=== PATIENT | male | born 1960 | race Caucasian/White ===

== ENCOUNTER 2017-01-02 17:59 | Emergency (ER) | payer OTHER ==
[~2017-01-02] VITALS: Ht 177.8 cm; Wt 120.0 kg
[~2017-01-02 17:59] MED LIST: ALBU8I INH; BACL20TA PO; DIAZ5 PO; LISI20 PO; MOBI7.5T PO; TRAM100T19 PO
[2017-01-02 18:01] VITALS: BP 176/102; PULSE 68; RESP 18; TEMP 98.5; O2SAT 97
[2017-01-02 20:21] LABS: AUTOMATED NEUTROPHIL # 6.3 TH/MM3 (1.8-7.7); BASOPHIL # 0.1 TH/MM3 (0-0.2); EOSINOPHIL # 0.1 TH/MM3 (0-0.4); EOSINOPHIL % 1.2 % (0.0-4.0); HEMATOCRIT 51.6 % (39.0-51.0); HEMO FLAGS DIFF FINAL; LYMPH % 26.3 % (9.0-44.0); LYMPHOCYTE # 2.6 TH/MM3 (1.0-4.8); MEAN CORPUSCULAR HEMOGLOBIN 30.3 PG (27.0-34.0); MEAN CORPUSCULAR HGB CONC 34.4 % (32.0-36.0); MONO % 7.1 % (0.0-8.0); NEUT % 64.4 % (16.0-70.0); PLATELET COUNT 235 TH/MM3 (150-450); RED BLOOD COUNT 5.86 MIL/MM3 (4.50-5.90); RED CELL DISTRIBUTION WIDTH 13.7 % (11.6-17.2); WHITE BLOOD COUNT 9.8 TH/MM3 (4.0-11.0)
--- NOTE | 2017-01-02 20:22 | RADRPT ---
EXAM DATE/TIME: 01/02/2017 18:53 [facility] COMPARISON: No previous studies available for comparison. INDICATIONS : Chest pain with shortness of breath. MEDICAL HISTORY : Hypertension. SURGICAL HISTORY : None. ENCOUNTER: Initial ACUITY: 2 days PAIN SCORE: 4/10 LOCATION: Bilateral chest FINDINGS: PA and lateral views of the chest demonstrate the lungs to be symmetrically aerated without evidence of mass, infiltrate or effusion. The cardiomediastinal contours are unremarkable. Osseous structure s are intact. CONCLUSION: No acute disease. Edgardo Ballard MD on January 02, 2017 at 20:20 Board Certified Radiologist. This report was verified electronically.
[2017-01-02 20:35] LABS: APTT (PATIENT) 27.8 SEC (24.3-30.1); INTERNATIONAL NORMALIZED RATIO 0.9 RATIO; PROTHROMBIN TIME - PATIENT 10.4 SEC (9.8-11.6)
[2017-01-02 20:47] LABS: ANION GAP 8 MEQ/L (5-15); BICARBONATE 23.5 MEQ/L (21.0-32.0); BLOOD UREA NITROGEN 10 MG/DL (7-18); CHLORIDE 108 MEQ/L (98-107); GLOMERULAR FILTRATION RATE 76 ML/MIN (>89); MAGNESIUM 2.1 MG/DL (1.5-2.5); SODIUM (NA) 139 MEQ/L (136-145)
[2017-01-02 20:51] LABS: CREATINE KINASE 125 U/L (39-308)
[2017-01-02 21:08] LABS: CKMB 1.1 NG/ML (0.5-3.6)
--- NOTE | 2017-01-02 21:24 | EKG ---
Date Performed: 01/02/2017 Time Performed: 19:52:50 PTAGE: 56 years EKG: SINUS BRADYCARDIA WITH MARKED SINUS ARRHYTHMIA NONSPECIFIC T-WAVE ABNORMALITY BORDERLINE EC G NO PREVIOUS TRACING DOCTOR: Fabiano Garrido Interpretating Date/Time 01/02/2017 21:23:30
[2017-01-02] MEDS ORDERED: SERO300T PO (22:31)
[2017-01-02] MEDS ORDERED: LOSA50TA PO (22:31)
[2017-01-02] MEDS ORDERED: DIAZ10 PO (22:31)
[2017-01-02] MEDS ORDERED: ATOR40TA16 PO (22:31)
--- NOTE | 2017-01-02 22:46 | PD ---
HPI Chief Complaint: Respiratory Symptoms Time Seen by Provider: 22:05 Travel History International Travel<30 days: No Contact w/Intl Traveler<30days: No Traveled to known affect area: No History of Present Illness HPI 56-year-old male complains of elevated blood pressure and shortness of breath. Patient states that the symptoms started today. Patient has history of hypertension and has been taking lisinopril 20 mg daily. Patient also has history of chronic back pain and anxiety. Patient states that he took meloxicam for the past 2 days and aspirin 325 mg today. Patient was seen by personal physician and states that he has thickened blood. Patient being referred to a candy dipper hand for that. Patient denies any headache. Patient states that he has intermittent postnasal drip today. Patient denies any chest pain. Patient states that he has intermittent shortness of breath. Patient states that the shortness breath is not associated with exertion. Patient has history of hypertension. Patient denies history of diabetes or hyperlipidemia. Patient is a smoker. Patient states that he has history of asthma and has been using albuterol inhaler. Patient denies any fever chills. Patient denies any coughing congestion. Patient states that the blood pressure was elevated this evening. PFSH Past Medical History Anxiety: Yes Depression: Yes High Cholesterol: Yes Diabetes: No (PT STATES " ALMOST , LOST 60 LBS 4 MONTHS") Diminished Hearing: No Herniated Disk: Yes Hypertension: Yes Psychiatric: Yes Immunizations Current: Yes Migraines: Yes Tetanus Vaccination: > 5 Years Influenza Vaccination: No Past Surgical History Surgical History: No Previous Surgery Other Surgery: Yes (SURGERY FOR DEVIATED SEPTUM, HAIR TRANSPLANT) Social History Alcohol Use: No Tobacco Use: Yes (one pack per day) Substance Use: No Allergies-Medications (Allergen,Severity, Reaction): Coded Allergies: penicillin G (Unverified Allergy, Severe, 01/02/17) Per [facility] [phone]. Reported Meds & Prescriptions Reported Meds & Active Scripts Active Reported Valium (Diazepam) 10 Mg Tab 20 Mg PO HS Seroquel (Quetiapine Fumarate) 300 Mg Tab 300 Mg PO HS Atorvastatin (Atorvastatin Calcium) 40 Mg Tab 40 Mg PO HS Losartan (Losartan Potassium) 50 Mg Tab 50 Mg PO DAILY Review of Systems General / Constitutional: No: Fever Eyes: No: Visual changes HENT: No: Headaches Cardiovascular: No: Chest Pain or Discomfort Respiratory: Positive: Shortness of Breath Gastrointestinal: No: Abdominal Pain Genitourinary: No: Dysuria Musculoskeletal: No: Pain Skin: No Rash Neurologic: No: Weakness Psychiatric: No: Depression Endocrine: No: Polydipsia Hematologic/Lymphatic: No: Easy Bruising Physical Exam Narrative GENERAL: Well-nourished, well-developed patient. SKIN: Focused skin assessment warm/dry. HEAD: Normocephalic. EYES: No scleral icterus. No injection or drainage. Throat: Nonerythematous. NECK: Supple, trachea midline. No JVD or lymphadenopathy. CARDIOVASCULAR: Regular rate and rhythm without murmurs, gallops, or rubs. RESPIRATORY: Breath sounds equal bilaterally. No accessory muscle use. GASTROINTESTINAL: Abdomen soft, non-tender, nondistended. MUSCULOSKELETAL: No cyanosis, or edema. BACK: Nontender without obvious deformity. No CVA tenderness. Neurologic exam normal. Data Data Last Documented VS Vital Signs Date Time Temp Pulse Resp B/P (MAP) Pulse Ox O2 Delivery O2 Flow Rate FiO2 01/02/17 22:10 66 20 98 01/02/17 18:01 98.5 176/102 (126) Orders Orders Electrocardiogram (01/02/17 18:28) Basic Metabolic Panel (Bmp) (01/02/17 18:28) Ckmb (Isoenzyme) Profile (01/02/17 18:28) Complete Blood Count With Diff (01/02/17 18:28) Magnesium (Mg) (01/02/17 18:28) Prothrombin Time / Inr (Pt) (01/02/17 18:28) Act Partial Throm Time (Ptt) (01/02/17 18:28) Troponin I (01/02/17 18:28) Chest, Pa & Lat (01/02/17 18:28) CKMB (01/02/17 19:50) CKMB% (01/02/17 19:50) Labs Laboratory Tests Test 01/02/17 19:50 White Blood Count 9.8 TH/MM3 Red Blood Count 5.86 MIL/MM3 Hemoglobin 17.8 GM/DL Hematocrit 51.6 % Mean Corpuscular Volume 88.0 FL Mean Corpuscular Hemoglobin 30.3 PG Mean Corpuscular Hemoglobin Concent 34.4 % Red Cell Distribution Width 13.7 % Platelet Count 235 TH/MM3 Mean Platelet Volume 8.8 FL Neutrophils (%) (Auto) 64.4 % Lymphocytes (%) (Auto) 26.3 % Monocytes (%) (Auto) 7.1 % Eosinophils (%) (Auto) 1.2 % Basophils (%) (Auto) 1.0 % Neutrophils # (Auto) 6.3 TH/MM3 Lymphocytes # (Auto) 2.6 TH/MM3 Monocytes # (Auto) 0.7 TH/MM3 Eosinophils # (Auto) 0.1 TH/MM3 Basophils # (Auto) 0.1 TH/MM3 CBC Comment DIFF FINAL Differential Comment Prothrombin Time 10.4 SEC Prothromb Time International Ratio 0.9 RATIO Activated Partial Thromboplast Time 27.8 SEC Blood Urea Nitrogen 10 MG/DL Creatinine 1.02 MG/DL Random Glucose 108 MG/DL Calcium Level 8.9 MG/DL Magnesium Level 2.1 MG/DL Sodium Level 139 MEQ/L Potassium Level 4.0 MEQ/L Chloride Level 108 MEQ/L Carbon Dioxide Level 23.5 MEQ/L Anion Gap 8 MEQ/L Estimat Glomerular Filtration Rate 76 ML/MIN Total Creatine Kinase 125 U/L Creatine Kinase MB 1.1 NG/ML Troponin I LESS THAN 0.02 NG/ML MDM Medical Decision Making Medical Screen Exam Complete: Yes Emergency Medical Condition: Yes Interpretation(s) 22:44 PM. EKG shows sinus rhythm nonspecific ST-T wave change. CBC with WBC 9.8. Hemoglobin 17.8. Hematocrit 51.6. Patient at baseline. BMP within normal limit. Cardiac enzymes are normal. Differential Diagnosis Differential diagnosis including acute exacerbation of asthma, URI, allergy, uncontrolled hypertension. Narrative Course 56-year-old male with shortness of breath and elevated blood pressure. History of hypertension. Repeat blood pressure in the ED 140/90. Patient started taking meloxicam and aspirin. Diagnosis Primary Impression: Dyspnea Qualified Codes: R06.00 - Dyspnea, unspecified Additional Impression: Uncontrolled hypertension Patient Instructions: General Instructions Additional Instructions: Stop meloxicam. Advised patient aspirin 81 mg daily. Continue with all blood pressure medication. Follow-up with personal physician for blood pressure check. Med/Other Pt SpecificInfo: Med Stopped Disposition: 01 DISCHARGE HOME Condition: Stable Von Preciado MD Jan 02, 2017 22:46
[2017-01-02 23:10] VITALS: BP 136/74
== END 2017-01-02 23:11 | disposition home or self-care (01) ==
LOC: NEPD 17:59
DX: I10 Essential (primary) hypertension (principal); R06.00 Dyspnea, unspecified; F41.9 Anxiety disorder, unspecified; F32.9 Major depressive disorder, single episode, unspecified
CPT/HCPCS: 71020; 80048; 82550; 82552; 83735; 84484; 85025; 85610; 85730; 93005; 99285

== ENCOUNTER 2017-01-30 17:47 | Emergency (ER) | payer OTHER ==
[~2017-01-30 17:47] MED LIST changes: -ALBU8I INH; +ATOR40TA16 PO; -BACL20TA PO; +DIAZ10 PO; -DIAZ5 PO; -LISI20 PO; +LOSA50TA PO; -MOBI7.5T PO; +SERO300T PO; -TRAM100T19 PO
[2017-01-30 17:48] VITALS: BP 141/84; PULSE 80; RESP 15; TEMP 98; O2SAT 98
--- NOTE | 2017-01-30 18:31 | RADRPT ---
EXAM DATE/TIME: 01/30/2017 18:09 [facility] COMPARISON: CHEST PA & LAT, January 02, 2017, 18:53. INDICATIONS : Short of breath. MEDICAL HISTORY : Coronary artery disease, Polycytosis. SURGICAL HISTORY : None. ENCOUNTER: [facility] ACUITY: 3 weeks PAIN SCORE: 0/10 LOCATION: Bilateral chest FINDINGS: PA and lateral views of the chest demonstrate the lungs to be symmetrically aerated without evidence of mass, infiltrate or effusion. The cardiomediastinal contours are unremarkable. Osseous structure s are intact. CONCLUSION: No acute disease. Julio C Sierra MD on January 30, 2017 at 18:28 Board Certified Radiologist. This report was verified electronically.
[2017-01-30] MEDS ORDERED: LIDOCAINE VISCOUS 2% SOLN 15 ML UDC PO ONE (20:00)
[2017-01-30] MEDS ORDERED: ALUMINUM/MAGNESIUM/SIMETH 30 ML CUP PO ONE (20:00)
[2017-01-30] MEDS ORDERED: FAMOTIDINE 20 MG/2 ML VIAL IV PUSH ONE (20:00)
[2017-01-30] MEDS ORDERED: SODIUM CHLORIDE 0.9% FLUSH 10 ML FLUSH IVF PRN (20:00)
[2017-01-30 20:01] VITALS: O2SAT 97
[2017-01-30 20:21] LABS: AUTOMATED NEUTROPHIL # 5.4 TH/MM3 (1.8-7.7); BASOPHIL # 0.1 TH/MM3 (0-0.2); EOSINOPHIL # 0.1 TH/MM3 (0-0.4); EOSINOPHIL % 1.4 % (0.0-4.0); HEMATOCRIT 49.9 % (39.0-51.0); HEMO FLAGS DIFF FINAL; LYMPH % 25.2 % (9.0-44.0); LYMPHOCYTE # 2.1 TH/MM3 (1.0-4.8); MEAN CELL VOLUME 88.4 FL (80.0-100.0); MONO % 7.7 % (0.0-8.0); NEUT % 64.7 % (16.0-70.0); PLATELET COUNT 200 TH/MM3 (150-450); RED BLOOD COUNT 5.64 MIL/MM3 (4.50-5.90); WHITE BLOOD COUNT 8.4 TH/MM3 (4.0-11.0)
--- NOTE | 2017-01-30 20:41 | PD ---
HPI Chief Complaint: Respiratory Symptoms Time Seen by Provider: 19:26 Travel History International Travel<30 days: No Contact w/Intl Traveler<30days: No Traveled to known affect area: No History of Present Illness HPI Patient is a 56 year old male who comes in complaining of SOB and feeling like something is "sticky" in his throat. He says this has been going on for a while , but has been worse in the past week. He says he gets occasional pain to his epigastric area. He says he feels like he is trying to breath through a straw. He offers several different diagnosis for himself. He has not tried anything to relieve his symptoms. He says he cannot lay flat and has to lay on his stomach. HE denies dyspnea on exertion. He does say he has been laying in bed all day due to his chronic depression. He denies fever or chills. PFSH Past Medical History Anxiety: Yes Depression: Yes High Cholesterol: Yes Diminished Hearing: No Herniated Disk: Yes Hypertension: Yes Psychiatric: Yes Immunizations Current: Yes Migraines: Yes Tetanus Vaccination: Unknown Past Surgical History Other Surgery: Yes (SURGERY FOR DEVIATED SEPTUM, HAIR TRANSPLANT) Social History Alcohol Use: No Tobacco Use: Yes (one pack per day) Substance Use: No Allergies-Medications (Allergen,Severity, Reaction): Coded Allergies: penicillin G (Unverified Allergy, Severe, 01/30/17) Per [facility] [phone]. Reported Meds & Prescriptions Reported Meds & Active Scripts Active Reported Valium (Diazepam) 10 Mg Tab 20 Mg PO HS Seroquel (Quetiapine Fumarate) 300 Mg Tab 300 Mg PO HS Atorvastatin (Atorvastatin Calcium) 40 Mg Tab 40 Mg PO HS Losartan (Losartan Potassium) 50 Mg Tab 50 Mg PO DAILY Review of Systems Except as stated in HPI: all other systems reviewed are Neg General / Constitutional: No: Fever, Chills HENT: No: Headaches, Lightheadedness Respiratory: Positive: Shortness of Breath Gastrointestinal: Positive: Abdominal Pain, No: Nausea, Vomiting Musculoskeletal: No: Myalgias, Edema Skin: No Rash, No Change in Pigmentation Neurologic: No: Weakness, Dizziness Physical Exam Narrative GENERAL: Awake and alert, in no acute distress. SKIN: Focused skin assessment warm/dry. HEAD: Atraumatic. Normocephalic. EYES: Pupils equal and round. No scleral icterus. ENT: No pharyngeal swelling. No tonsillar enlargement or exudates. Mucous membranes pink and moist. NECK: Trachea midline. No JVD. CARDIOVASCULAR: Regular rate and rhythm. No murmur appreciated. RESPIRATORY: No accessory muscle use. Clear to auscultation. Breath sounds equal bilaterally. GASTROINTESTINAL: Abdomen soft, nondistended. Mild tenderness to the mid- epigastric area. No rebound or guarding. MUSCULOSKELETAL: No obvious deformities. No clubbing. No cyanosis. No edema. NEUROLOGICAL: Awake and alert. No obvious cranial nerve deficits. Motor grossly within normal limits. Normal speech. PSYCHIATRIC: Appropriate mood and affect; insight and judgment normal. Data Data Last Documented VS Vital Signs Date Time Temp Pulse Resp B/P (MAP) Pulse Ox O2 Delivery O2 Flow Rate FiO2 01/30/17 21:26 65 18 120/77 (91) 98 Room Air 01/30/17 17:48 98.0 Orders Orders Chest, Pa & Lat (01/30/17 ) Complete Blood Count With Diff (01/30/17 19:46) Comprehensive Metabolic Panel (01/30/17 19:46) B-Type Natriuretic Peptide (01/30/17 19:46) D-Dimer (01/30/17 19:46) Act Partial Throm Time (Ptt) (01/30/17 19:46) Prothrombin Time / Inr (Pt) (01/30/17 19:46) Troponin I (01/30/17 19:46) Iv Access Insert/Monitor (01/30/17 19:46) Electrocardiogram (01/30/17 19:46) Ecg Monitoring (01/30/17 19:46) Oximetry (01/30/17 19:46) Oxygen Administration (01/30/17 19:46) Sodium Chloride 0.9% Flush (Ns Flush) (01/30/17 20:00) Famotidine Inj (Pepcid Inj) (01/30/17 20:00) Al-Mag Hy-Si 40-40-4 Mg/Ml Liq (Mag-Al P (01/30/17 20:00) Lidocaine 2% Viscous (Xylocaine 2% Visco (01/30/17 20:00) Labs Laboratory Tests Test 01/30/17 20:10 White Blood Count 8.4 TH/MM3 Red Blood Count 5.64 MIL/MM3 Hemoglobin 16.9 GM/DL Hematocrit 49.9 % Mean Corpuscular Volume 88.4 FL Mean Corpuscular Hemoglobin 30.0 PG Mean Corpuscular Hemoglobin Concent 34.0 % Red Cell Distribution Width 14.0 % Platelet Count 200 TH/MM3 Mean Platelet Volume 9.1 FL Neutrophils (%) (Auto) 64.7 % Lymphocytes (%) (Auto) 25.2 % Monocytes (%) (Auto) 7.7 % Eosinophils (%) (Auto) 1.4 % Basophils (%) (Auto) 1.0 % Neutrophils # (Auto) 5.4 TH/MM3 Lymphocytes # (Auto) 2.1 TH/MM3 Monocytes # (Auto) 0.6 TH/MM3 Eosinophils # (Auto) 0.1 TH/MM3 Basophils # (Auto) 0.1 TH/MM3 CBC Comment DIFF FINAL Differential Comment Prothrombin Time 10.4 SEC Prothromb Time International Ratio 1.0 RATIO Activated Partial Thromboplast Time 27.1 SEC D-Dimer Quantitative (PE/DVT) LESS THAN 0.19 MG/L FEU Blood Urea Nitrogen 14 MG/DL Creatinine 1.15 MG/DL Random Glucose 82 MG/DL Total Protein 7.9 GM/DL Albumin 4.5 GM/DL Calcium Level 9.1 MG/DL Alkaline Phosphatase 58 U/L Aspartate Amino Transf (AST/SGOT) 39 U/L Alanine Aminotransferase (ALT/SGPT) 41 U/L Total Bilirubin 0.6 MG/DL Sodium Level 137 MEQ/L Potassium Level 4.5 MEQ/L Chloride Level 103 MEQ/L Carbon Dioxide Level 23.1 MEQ/L Anion Gap 11 MEQ/L Estimat Glomerular Filtration Rate 66 ML/MIN Troponin I LESS THAN 0.02 NG/ML B-Type Natriuretic Peptide 6 PG/ML [facility] Medical Decision Making Medical Screen Exam Complete: Yes Emergency Medical Condition: Yes Medical Record Reviewed: Yes Interpretation(s) ECG shows sinus rhythm at 59, no ST elevation or depression. Differential Diagnosis Postnasal drip versus GERD versus ACS Narrative Course Patient is a 56-year-old male who comes in complaining of a "sticky throat" and some shortness of breath. Patient has had symptoms for several weeks. Exam shows no acute abnormalities. IV established, labs sent. Labs show no acute abnormalities. Troponin and d-dimer are negative. Patient given a GI cocktail. He is advised to try [id number] allergy medications as well as Zantac. Advised follow-up with his doctor. Advised to return to the ED as needed for any worsening symptoms. Diagnosis Primary Impression: Post-nasal drainage Additional Impression: GERD (gastroesophageal reflux disease) Qualified Codes: K21.9 - Gastro-esophageal reflux disease without esophagitis Patient Instructions: Gastroesophageal Reflux Disease (ED), General Instructions, Postnasal Drip (GEN) Additional Instructions: Take [id number] allergy medication. Takes Zantac daily. Follow up with her doctors. Return to the ED as needed for any worsening symptoms. Scripts Ranitidine (Zantac) 150 Mg Tab 150 MG PO BID for Reduce Stomach Acid, #60 TAB 0 Refills Prov: Neeru Byrd MD 01/30/17 Disposition: 01 DISCHARGE HOME Condition: Stable Neeru Byrd MD Jan 30, 2017 20:41
[2017-01-30 20:44] LABS: ANION GAP 11 MEQ/L (5-15); AST (GOT) 39 U/L (15-37); BICARBONATE 23.1 MEQ/L (21.0-32.0); BLOOD UREA NITROGEN 14 MG/DL (7-18); CHLORIDE 103 MEQ/L (98-107); GLOMERULAR FILTRATION RATE 66 ML/MIN (>89); POTASSIUM 4.5 MEQ/L (3.5-5.1); SODIUM (NA) 137 MEQ/L (136-145)
[2017-01-30 20:45] LABS: ALT (GPT) 41 U/L (12-78)
[2017-01-30 20:48] LABS: ALKALINE PHOSPHATASE 58 U/L (45-117); APTT (PATIENT) 27.1 SEC (24.3-30.1); PROTHROMBIN TIME - PATIENT 10.4 SEC (9.8-11.6); TOTAL BILIRUBIN ADULT 0.6 MG/DL (0.2-1.0)
[2017-01-30 21:26] VITALS: BP 120/77; PULSE 65; RESP 18; O2SAT 98
[2017-01-30] MEDS ORDERED: ZANT150T2 PO (22:38)
--- NOTE | 2017-01-31 15:45 | EKG ---
Date Performed: 01/30/2017 Time Performed: 20:00:51 PTAGE: 56 years EKG: SINUS BRADYCARDIA WITH MARKED RHYTHM IRREGULARITY, POSSIBLE NON-CONDUCTED PAC, SA BLOCK, AV BLOCK, OR SINUS PAUSE ABNORMAL RHYTHM ECG PREVIOUS TRACING : 01/02/2017 19.52 DOCTOR: Joshua Dickey Interpretating Date/Time 01/31/2017 15:44:08
== END 2017-01-30 22:52 | disposition home or self-care (01) ==
LOC: NEPE 17:47
DX: R09.82 Postnasal drip (principal); K21.9 Gastro-esophageal reflux disease without esophagitis; F41.9 Anxiety disorder, unspecified; F32.9 Major depressive disorder, single episode, unspecified; E78.00 Pure hypercholesterolemia, unspecified; I10 Essential (primary) hypertension; F17.200 Nicotine dependence, unspecified, uncomplicated; Z79.899 Other long term (current) drug therapy; Z88.0 Allergy status to penicillin
CPT/HCPCS: 71020; 80053; 83880; 84484; 85025; 85379; 85610; 85730; 93005; 96374

== ENCOUNTER 2017-04-02 16:24 | Emergency (ER) | payer OTHER ==
[~2017-04-02 16:24] MED LIST changes: +ZANT150T2 PO
[2017-04-02 16:25] VITALS: BP 165/82; PULSE 63; RESP 14; TEMP 97.4; O2SAT 95
[2017-04-02 18:14] LABS: AUTOMATED NEUTROPHIL # 6.2 TH/MM3 (1.8-7.7); BASOPHIL # 0.1 TH/MM3 (0-0.2); BASOPHIL % 0.9 % (0.0-2.0); EOSINOPHIL # 0.2 TH/MM3 (0-0.4); EOSINOPHIL % 2.3 % (0.0-4.0); HEMATOCRIT 49.9 % (39.0-51.0); HEMOGLOBIN 17.6 GM/DL (13.0-17.0); LYMPH % 20.3 % (9.0-44.0); LYMPHOCYTE # 1.8 TH/MM3 (1.0-4.8); MEAN CELL VOLUME 88.2 FL (80.0-100.0); MEAN CORPUSCULAR HEMOGLOBIN 31.1 PG (27.0-34.0); MEAN CORPUSCULAR HGB CONC 35.2 % (32.0-36.0); MEAN PLATELET VOLUME 8.5 FL (7.0-11.0); MONO % 8.2 % (0.0-8.0); MONOCYTE # 0.7 TH/MM3 (0-0.9); NEUT % 68.3 % (16.0-70.0); PLATELET COUNT 219 TH/MM3 (150-450); RED BLOOD COUNT 5.66 MIL/MM3 (4.50-5.90); RED CELL DISTRIBUTION WIDTH 14.3 % (11.6-17.2); WHITE BLOOD COUNT 9.1 TH/MM3 (4.0-11.0)
[2017-04-02 18:25] LABS: PROTHROMBIN TIME - PATIENT 10.1 SEC (9.8-11.6)
[2017-04-02 18:28] LABS: ALBUMIN 4.4 GM/DL (3.4-5.0); ALT (GPT) 28 U/L (12-78); AST (GOT) 13 U/L (15-37); BICARBONATE 23.6 MEQ/L (21.0-32.0); BLOOD UREA NITROGEN 12 MG/DL (7-18); CALCIUM 9.1 MG/DL (8.5-10.1); CHLORIDE 109 MEQ/L (98-107); CREATININE 0.95 MG/DL (0.60-1.30); GLOMERULAR FILTRATION RATE 83 ML/MIN (>89); GLUCOSE,RANDOM 119 MG/DL (74-106); SODIUM (NA) 140 MEQ/L (136-145)
[2017-04-02 18:31] LABS: ALKALINE PHOSPHATASE 59 U/L (45-117); TOTAL BILIRUBIN ADULT 0.4 MG/DL (0.2-1.0); TOTAL PROTEIN 7.9 GM/DL (6.4-8.2)
[2017-04-02] MEDS ORDERED: IBUP-232 PO (19:45)
[2017-04-02] MEDS ORDERED: PANTOPRAZOLE SOD 40 MG DELAYED RELEASE TAB PO ONE (19:45)
[2017-04-02] MEDS ORDERED: PROT40TA PO (19:45)
[2017-04-02] MEDS ORDERED: IBUPROFEN 600 MG TAB PO ONE (19:45)
[2017-04-02] MEDS ORDERED: ROBA750T PO (19:45)
--- NOTE | 2017-04-02 19:46 | PD ---
HPI Chief Complaint: Medical Clearance Time Seen by Provider: 19:11 Travel History International Travel<30 days: No Contact w/Intl Traveler<30days: No Traveled to known affect area: No History of Present Illness HPI 56-year-old male complains of blurring vision, seeing halos, abdominal pain, back pain. Patient states that he has history of chronic back pain from spinal stenosis and herniated disc. Patient was seen by personal physician in the past for back pain. Patient took tramadol recently for back pain. Patient states that he started having upper abdomen lower abdomen pain for the past 2 days. Patient states that the pain has been intermittent. Patient states the pain and cramping pain. Patient denies any pain radiation. Patient denies nausea vomiting diaphoresis. Patient denied dysuria or frequency. Patient denies any fever chills. Patient normally wears glasses. Patient has not seen an economic adviser for the past 3 years. PFSH Past Medical History Anxiety: Yes Depression: Yes Cardiovascular Problems: Yes High Cholesterol: Yes Coronary Artery Disease: Yes ("Possible significant abdominal aorta calcification" ) Diminished Hearing: No Herniated Disk: Yes Hypertension: Yes Psychiatric: Yes Immunizations Current: Yes Migraines: Yes Tetanus Vaccination: Unknown Influenza Vaccination: No Past Surgical History Other Surgery: Yes (SURGERY FOR DEVIATED SEPTUM, HAIR TRANSPLANT) Social History Alcohol Use: No Tobacco Use: Yes (one pack per day) Substance Use: No Allergies-Medications (Allergen,Severity, Reaction): Coded Allergies: aspirin (Verified Allergy, Severe, Anaphylaxis, 04/02/17) penicillin G (Unverified Allergy, Severe, 04/02/17) Per [facility] [phone]. Reported Meds & Prescriptions Reported Meds & Active Scripts Active Reported Valium (Diazepam) 10 Mg Tab 20 Mg PO HS Atorvastatin (Atorvastatin Calcium) 40 Mg Tab 40 Mg PO HS Losartan (Losartan Potassium) 50 Mg Tab 50 Mg PO DAILY Review of Systems General / Constitutional: No: Fever Eyes: Positive: Blurred Vision, No: Visual changes HENT: No: Headaches Cardiovascular: No: Chest Pain or Discomfort Respiratory: No: Shortness of Breath Gastrointestinal: Positive: Abdominal Pain Genitourinary: No: Dysuria Musculoskeletal: No: Pain Skin: No Rash Neurologic: No: Weakness Psychiatric: No: Depression Endocrine: No: Polydipsia Hematologic/Lymphatic: No: Easy Bruising Physical Exam Narrative GENERAL: Well-nourished, well-developed patient. SKIN: Focused skin assessment warm/dry. HEAD: Normocephalic. EYES: No scleral icterus. No injection or drainage. Pupils 2 mm equal reactive. Fundi benign. NECK: Supple, trachea midline. No JVD or lymphadenopathy. CARDIOVASCULAR: Regular rate and rhythm without murmurs, gallops, or rubs. RESPIRATORY: Breath sounds equal bilaterally. No accessory muscle use. GASTROINTESTINAL: Abdomen soft, nondistended. Patient has mild tenderness on palpation lower abdomen. No rebound tenderness. No mass. MUSCULOSKELETAL: No cyanosis, or edema. BACK: Nontender without obvious deformity. No CVA tenderness. Neurologic exam: Patient is awake alert oriented 3. Patient moves all extremities well. No obvious focal neurological deficit. Data Data Last Documented VS Vital Signs Date Time Temp Pulse Resp B/P (MAP) Pulse Ox O2 Delivery O2 Flow Rate FiO2 04/02/17 16:25 97.4 63 14 165/82 (109) 95 Orders Orders Electrocardiogram (04/02/17 ) Complete Blood Count With Diff (04/02/17 16:37) Comprehensive Metabolic Panel (04/02/17 16:37) Lipase (04/02/17 16:37) Prothrombin Time / Inr (Pt) (04/02/17 16:37) Act Partial Throm Time (Ptt) (04/02/17 16:37) Urinalysis - C+S If Indicated (04/02/17 16:37) Labs Laboratory Tests Test 04/02/17 17:57 White Blood Count 9.1 TH/MM3 Red Blood Count 5.66 MIL/MM3 Hemoglobin 17.6 GM/DL Hematocrit 49.9 % Mean Corpuscular Volume 88.2 FL Mean Corpuscular Hemoglobin 31.1 PG Mean Corpuscular Hemoglobin Concent 35.2 % Red Cell Distribution Width 14.3 % Platelet Count 219 TH/MM3 Mean Platelet Volume 8.5 FL Neutrophils (%) (Auto) 68.3 % Lymphocytes (%) (Auto) 20.3 % Monocytes (%) (Auto) 8.2 % Eosinophils (%) (Auto) 2.3 % Basophils (%) (Auto) 0.9 % Neutrophils # (Auto) 6.2 TH/MM3 Lymphocytes # (Auto) 1.8 TH/MM3 Monocytes # (Auto) 0.7 TH/MM3 Eosinophils # (Auto) 0.2 TH/MM3 Basophils # (Auto) 0.1 TH/MM3 CBC Comment DIFF FINAL Differential Comment Prothrombin Time 10.1 SEC Prothromb Time International Ratio 1.0 RATIO Activated Partial Thromboplast Time 27.0 SEC Blood Urea Nitrogen 12 MG/DL Creatinine 0.95 MG/DL Random Glucose 119 MG/DL Total Protein 7.9 GM/DL Albumin 4.4 GM/DL Calcium Level 9.1 MG/DL Alkaline Phosphatase 59 U/L Aspartate Amino Transf (AST/SGOT) 13 U/L Alanine Aminotransferase (ALT/SGPT) 28 U/L Total Bilirubin 0.4 MG/DL Sodium Level 140 MEQ/L Potassium Level 4.2 MEQ/L Chloride Level 109 MEQ/L Carbon Dioxide Level 23.6 MEQ/L Anion Gap 7 MEQ/L Estimat Glomerular Filtration Rate 83 ML/MIN Lipase 154 U/L MDM Medical Decision Making Medical Screen Exam Complete: Yes Emergency Medical Condition: Yes Interpretation(s) 1936 PM. CBC within normal limits. CMP within normal limits. Differential Diagnosis Differential diagnosis including nearsightedness, conjunctivitis, iritis, acute on chronic low back pain, gastritis, PUD, pancreatitis, cholecystitis, colitis, UTI, pyelonephritis, nephrolithiasis. Narrative Course 56-year-old male with multiple complaints including blurring vision, low back pain, abdominal pain. Protonix 40 mg p.o. given. Ibuprofen 600 mg p.o. given. Diagnosis Primary Impression: Abdominal pain Qualified Codes: R10.30 - Lower abdominal pain, unspecified Additional Impressions: Acute exacerbation of chronic low back pain Blurring of vision Patient Instructions: General Instructions Additional Instructions: Follow with economic adviser for eye problem. Take medication as needed for back pain abdominal pain. Follow-up with personal physician. Return if worse. Med/Other Pt SpecificInfo: Prescription(s) given Scripts Ibuprofen (Ibuprofen) 600 Mg Tab 600 MG PO TID for Pain, #30 TAB 0 Refills Prov: Von Preciado MD 04/02/17 Methocarbamol (Robaxin) 750 Mg Tab 750 MG PO QID for Muscle Spasm, #40 TAB 0 Refills Prov: Von Preciado MD 04/02/17 Pantoprazole (Protonix) 40 Mg Tab 40 MG PO DAILY for Reflux, #30 TAB 0 Refills Prov: Von Preciado MD 04/02/17 Disposition: 01 DISCHARGE HOME Condition: Stable Von Preciado MD Apr 02, 2017 19:46
--- NOTE | 2017-04-04 09:34 | EKG ---
Date Performed: 04/02/2017 Time Performed: 18:03:02 PTAGE: 56 years EKG: Sinus bradycardia wth marked sinus rythm irregularity, possible non-conducted PACs, SA bloc k, AV block, or sinus pause NONSPECIFIC T-WAVE ABNORMALITY BORDERLINE ECG PREVIOUS TRACING : 01/30/2017 20.00 Since the prior tracing, there has been no significant grace DOCTOR: Jose Dlegado Interpretating Date/Time 04/04/2017 09:34:12
== END 2017-04-02 20:19 | disposition home or self-care (01) ==
LOC: NEPD 16:24
DX: R10.30 Lower abdominal pain, unspecified (principal); M54.5 Low back pain; G89.29 Other chronic pain; H53.8 Other visual disturbances; R94.31 Abnormal electrocardiogram [ECG] [EKG]; F32.9 Major depressive disorder, single episode, unspecified; E78.00 Pure hypercholesterolemia, unspecified; I10 Essential (primary) hypertension; I25.10 Atherosclerotic heart disease of native coronary artery without angina pectoris; F17.210 Nicotine dependence, cigarettes, uncomplicated; Z88.0 Allergy status to penicillin; Z88.8 Allergy status to other drugs, medicaments and biological substances
CPT/HCPCS: 80053; 83690; 85025; 85610; 85730; 93005; 99284